=== PATIENT | male | born 1985 | race Caucasian/White ===

== ENCOUNTER 2017-06-23 17:08 | Emergency (ER) | payer OTHER ==
[~2017-06-23] VITALS: Ht 182.9 cm; Wt 65.8 kg
[2017-06-23 17:43] VITALS: BP 128/78
[2017-06-23] MEDS ORDERED: CYCL-331 PO (18:24)
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
== END 2017-06-23 18:40 | disposition home or self-care (01) ==
LOC: ER 17:08
DX: S43.402A Unspecified sprain of left shoulder joint, initial encounter (principal); F10.10 Alcohol abuse, uncomplicated; V89.2XXA Person injured in unspecified motor-vehicle accident, traffic, initial encounter; Y93.89 Activity, other specified; Y99.8 Other external cause status; Y92.89 Other specified places as the place of occurrence of the external cause
CPT/HCPCS: 99283